=== PATIENT | male | born 2005 | race Two or more races ===

== ENCOUNTER 2025-02-09 00:31 | Emergency (ER) | payer OTHER ==
[~2025-02-09] VITALS: Ht 170.2 cm; Wt 90.3 kg
[2025-02-09 02:59] LABS: BASO % 0.5 % (0.1-1.2); EOS # 0.02 (0.04-0.54); EOS % 0.2 % (0.7-7.0); LYMPH # 1.11 (1.18-3.74); LYMPH % 12.8 % (19.3-53.1); MEAN PLATELET VOLUME 11.70 fl (9.4-12.4); MONO # 0.59 (0.24-0.82); MONO % 6.8 % (4.7-12.5); NEUT # 6.89 (1.56-6.13); NEUT % 79.5 % (34.0-71.1); RED CELL DISTRIBUTION WIDTH 11.9 % (11.6-14.4)
[2025-02-09 03:19] LABS: INR 1.01
[2025-02-09 03:23] LABS: BUN CREA RATIO 16.0 (7.0-25.0); CREATININE SERUM 1.22 mg/dL (0.70-1.30); GFR 74.98; GLUCOSE FASTING 109.0 mg/dL (65-100); OSMOLALITY SERUM 288.0 MOSM/KG (275-295)
[2025-02-09 03:28] LABS: URINE APPEARANCE Clear; URINE BILIRRUBIN Negative (NEGATIVE); URINE BLOOD Negative; URINE COLOR Yellow; URINE GLUCOSE Negative (NEGATIVE); URINE KETONE Negative (NEGATIVE); URINE LEUKOCYTE Negative; URINE NITRATE Negative; URINE PROTEIN Negative (NEGATIVE); URINE UROBILINOGEN 0.2 E.U./dl
[2025-02-09 03:34] LABS: URINE BACTERIA 3.4 uL (0.0-1933); URINE CAST 0.00 uL (0.0-1.40); URINE EPITHELIAL CELLS 0.3 uL (0.0-38.8); URINE RBC 0.2 uL (0.0-20.8); URINE WBC 0.9 uL (0.0-23.2)
[2025-02-09 04:27] LABS: COVID-19 AG NEGATIVE (NEGATIVE)
== END 2025-02-09 04:25 | disposition home or self-care (01) ==
LOC: ER 00:31
PROVIDERS: General Practice
DX: R29.810 Facial weakness (principal); R07.89 Other chest pain; F41.9 Anxiety disorder, unspecified; Z20.822 Contact with and (suspected) exposure to COVID-19; Z91.013 Allergy to seafood